=== PATIENT | male | born 1975 | race Caucasian/White ===

== ENCOUNTER → 2020-12-09 | Outpatient (CLI) | payer BC ==
[~2020-12-09] VITALS: Ht 177.8 cm; Wt 137.5 kg
[~2020-12-09] MED LIST: INDERAL LA 60MG60 MG PO; ZYRTEC 10MG10 MG PO
[2020-12-09 12:02] VITALS: BP 160/86; PULSE 61
[2020-12-09 13:00] VITALS: BP 123/81; PULSE 72
[2020-12-09 13:15] VITALS: BP 120/71; PULSE 66
== END ==
LOC: COL.RAD 11:23
DX: R51.9 Headache, unspecified (principal)
CPT/HCPCS: A9585; J2250; J2704